=== PATIENT | female | born 1990 | race African-American/Black ===

== ENCOUNTER 2022-10-06 19:17 | Emergency (ER) | payer OTHER ==
[~2022-10-06] VITALS: Ht 172.7 cm; Wt 141.5 kg
[2022-10-06 19:18] VITALS: BP 143/89
--- NOTE | 2022-10-06 19:25 | NUR ---
[facility]. TAKEN TO BED 3
--- NOTE | 2022-10-06 19:52 | NUR ---
Patient A/Ox4, lying in bed, chest rise and fall symmetrical, no s/s of distress, patient on monitor.
[2022-10-06] MEDS ORDERED: ACETAMINOPHEN 325 MG TAB PO ONE (20:00)
[2022-10-06] MEDS ORDERED: IBUPROFEN 600 MG TAB PO ONE (20:00)
[2022-10-06] MEDS ORDERED: LIDOCAINE 5% 1 EA PATCH TP ONE (20:00)
--- NOTE | 2022-10-06 20:35 | NUR ---
[facility] AT BEDSIDE
--- NOTE | 2022-10-06 21:00 | NUR ---
Patient A/Ox4, lying in bed, chest rise and fall symmetrical, no s/s of distress, patient on monitor.
[2022-10-06 22:11] VITALS: BP 122/81
--- NOTE | 2022-10-06 22:13 | NUR ---
Patient discharged with v/s stable. Written and verbal after care instructions given and explained. Patient verbalized understanding. Ambulatory with steady gait. All questions addressed prior to discharge. Advised to follow up with PMD.
== END 2022-10-06 22:13 | disposition home or self-care (01) ==
LOC: MED 19:17
DX: M54.50 Low back pain, unspecified (principal); M79.674 Pain in right toe(s); M25.561 Pain in right knee; E11.9 Type 2 diabetes mellitus without complications; Z79.4 Long term (current) use of insulin; Z79.899 Other long term (current) drug therapy
CPT/HCPCS: 73560; 73610; 73630; 99284; Q0092